=== PATIENT | female | born 1960 | race Caucasian/White ===

== ENCOUNTER 2016-03-25 09:58 | Emergency (ER) | payer OTHER ==
[~2016-03-25] VITALS: Ht 167.6 cm; Wt 113.0 kg
[~2016-03-25 09:58] MED LIST: 1-ME1LIQ PO; CHLO.12%30 SWISH-SPIT; CLIN150 PO; LEVO125T3 PO; MMW SWISH-SPIT
[2016-03-25 10:01] VITALS: BP 139/91; PULSE 70; RESP 16; TEMP 98.1; O2SAT 98
[2016-03-25 10:10] VITALS: PULSE 73; RESP 20; O2SAT 98
[2016-03-25] MEDS ORDERED: AMLO5TAB2 PO (10:10)
[2016-03-25] MEDS ORDERED: LEVO.125 PO (10:10)
[2016-03-25] MEDS ORDERED: ACETAMINOPHEN/HYDROcodone 325 MG/5 MG TAB PO ONE (10:15)
[2016-03-25] MEDS ORDERED: methylPREDNISolone SOD SUCC 125 MG/2 ML VIAL IM ONE (10:15)
[2016-03-25] MEDS ORDERED: KETOROLAC TROMETHAMINE 60 MG/2 ML (IM) VIAL IM ONE (10:15)
[2016-03-25 10:20] VITALS: O2SAT 98
[2016-03-25] MEDS: RESP: ALBUTEROL 2.5 MG/IPRATROPIUM 0.5 MG NEB (SCH) INH ×2 (10:24→10:25)
--- NOTE | 2016-03-25 10:30 | PD ---
HPI Chief Complaint: Respiratory Symptoms Time Seen by Provider: 10:05 Travel History International Travel<30 days: No Contact w/Intl Traveler<30days: No Traveled to known affect area: No History of Present Illness HPI The patient was seen and examined in the presence of the nurse. She complains of shortness of breath. Duration 3 days. Severity is moderate. She has history of asthma and feels like she is having an asthma flare. She's been diffusely wheezing all morning. She ran out of her inhaler. Unfortunately she continues to smoke. She has had a minor dry cough but no fever. She does complain of some left upper back pain. No chest discomfort. Symptoms have no alleviating factors. PFSH Past Medical History Hx Anticoagulant Therapy: No Arthritis: Yes (RHEUMATOID) Asthma: Yes Cardiovascular Problems: No Chemotherapy: No Cerebrovascular Accident: No Diabetes: No Hypertension: Yes Respiratory: Yes (ASTHMA) Thyroid Disease: Yes Influenza Vaccination: Yes ?: Not Menopausal: Yes Past Surgical History Section: Yes Hysterectomy: Yes Other Surgery: Yes (r arm) Social History Alcohol Use: No Tobacco Use: Yes (3ppd) Substance Use: No Allergies-Medications (Allergen,Severity, Reaction): Coded Allergies: No Known Allergies (Unverified , 03/25/16) Reported Meds & Prescriptions Reported Meds & Active Scripts Active Reported Synthroid (Levothyroxine Sodium) 125 Mcg Tab 125 Mcg PO DAILY Amlodipine (Amlodipine Besylate) 5 Mg Tab 5 Mg PO DAILY Review of Systems General / Constitutional: No: Fever Eyes: No: Visual changes HENT: No: Headaches Cardiovascular: No: Chest Pain or Discomfort Respiratory: Positive: Cough, Shortness of Breath, Wheezing Gastrointestinal: No: Abdominal Pain Genitourinary: No: Dysuria Musculoskeletal: No: Pain Skin: No Rash Neurologic: No: Weakness Psychiatric: No: Depression Endocrine: No: Polydipsia Hematologic/Lymphatic: No: Easy Bruising Physical Exam Narrative GENERAL: Well-nourished, well-developed patient in respiratory distress. SKIN: Warm and dry. HEAD: Atraumatic. Normocephalic. EYES: Pupils equal and round. No scleral icterus. No injection or drainage. ENT: No nasal bleeding or discharge. Mucous membranes pink and moist. NECK: Trachea midline. No JVD. CARDIOVASCULAR: Regular rate and rhythm. No murmur appreciated. RESPIRATORY: No accessory muscle use. Diffuse expiratory wheezing. Breath sounds equal bilaterally. GASTROINTESTINAL: Abdomen soft, non-tender, nondistended. Hepatic and splenic margins not palpable. MUSCULOSKELETAL: No obvious deformities. No clubbing. No cyanosis. No edema. NEUROLOGICAL: Awake and alert. No obvious cranial nerve deficits. Motor grossly within normal limits. Normal speech. PSYCHIATRIC: Appropriate mood and affect; insight and judgment normal. Data Data Last Documented VS Vital Signs Date Time Temp Pulse Resp B/P Pulse Ox O2 Delivery O2 Flow Rate FiO2 03/25/16 11:11 97 Room Air 03/25/16 10:10 73 20 03/25/16 10:01 98.1 139/91 Orders Chest, Single Ap (03/25/16 10:12) Ecg Monitoring (03/25/16 10:12) Oximetry (03/25/16 10:12) Methylprednisolone So Succ Inj (Solumedr (03/25/16 10:15) Albuterol-Ipratropium Neb (Duoneb Neb) (03/25/16 10:15) Ketorolac Inj (Toradol Inj) (03/25/16 10:15) Acetamin-Hydrocod 325-5 Mg (Vernal 5-325 (03/25/16 10:15) MDM Medical Decision Making Medical Screen Exam Complete: Yes Emergency Medical Condition: Yes Medical Record Reviewed: Yes Differential Diagnosis Asthma exacerbation, pneumothorax, COPD Narrative Course I have reviewed the patient's electronic medical record. Presentation seems most consistent with acute exacerbation of asthma I gave her injection soluMedrol and 3 nebulizer treatments I reviewed her chest x-ray rule out pneumothorax given her pain and shortness of breath Chest x-ray is normal On recheck she is clinically much improved. Wheezing has resolved. Prednisone prescribed She needs to quit smoking Diagnosis Primary Impression: Asthma without acute exacerbation Additional Instructions: The patient was advised to follow up with their physician and return if they worsen. Quit smoking Med/Other Pt SpecificInfo: Prescription(s) given Scripts Prednisone 20 Mg Tab40 Mg PO DAILY #10 TAB Ref 0 Take 40 mg (2 tablets) daily for 5 days Prov:Jefry Burt MD 03/25/16 Albuterol 18 GM Inh (Ventolin Hfa 18 GM Inh)90 Mcg/Act Aer1 Puff INH Q4H PRN ( SHORTNESS OF BREATH) #1 INHALER Ref 0 Prov:Jefry Burt MD 03/25/16 Disposition: 01 DISCHARGE HOME Condition: Stable Jefry Burt MD Mar 25, 2016 10:30
--- NOTE | 2016-03-25 10:52 | RADHPO ---
EXAM DATE/TIME: 03/25/2016 10:31 [facility] COMPARISON: No previous studies available for comparison. INDICATIONS : Short of breath, chest pains MEDICAL HISTORY : None. SURGICAL HISTORY : None. ENCOUNTER: Initial ACUITY: 3 days PAIN SCORE: 8/10 LOCATION: Bilateral chest FINDINGS: A single view of the chest demonstrates the lungs to be symmetrically aerated without evidence of mas s, infiltrate or effusion. The cardiomediastinal contours are unremarkable. Osseous structures are intact. CONCLUSION: No acute intrathoracic disease. David Garza MD on March 25, 2016 at 10:51 Board Certified Radiologist. This report was verified electronically.
[2016-03-25] MEDS ORDERED: VENTAER INH (11:33)
[2016-03-25] MEDS ORDERED: PRED20 PO (11:33)
[2016-03-25 11:40] VITALS: BP 147/84
--- NOTE | 2016-03-26 09:44 | EKG ---
Date Performed: 03/25/2016 Time Performed: 10:07:06 PTAGE: 55 years EKG: Sinus rhythm Lateral T wave changes are nonspecific Low QRS voltages in precordial leads Borderline ECG Compared to prior tracing no significant change PREVIOUS TRACING : 03/07/2001 17.00 DOCTOR: Remigio Cabezas Interpretating Date/Time 03/26/2016 09:42:44
== END 2016-03-25 11:41 | disposition home or self-care (01) ==
LOC: PHED 09:58
DX: J45.901 Unspecified asthma with (acute) exacerbation (principal); R94.31 Abnormal electrocardiogram [ECG] [EKG]; F17.210 Nicotine dependence, cigarettes, uncomplicated; I10 Essential (primary) hypertension; E07.9 Disorder of thyroid, unspecified
CPT/HCPCS: 71010; 93005; 94640; 94664; 96372; 99284; J1885; J2930

== ENCOUNTER 2016-06-02 07:28 | Emergency (ER) | payer OTHER ==
[~2016-06-02] VITALS: Ht 165.1 cm; Wt 118.2 kg
[~2016-06-02 07:28] MED LIST changes: -1-ME1LIQ PO; +AMLO5TAB2 PO; -CHLO.12%30 SWISH-SPIT; -CLIN150 PO; +LEVO.125 PO; -LEVO125T3 PO; -MMW SWISH-SPIT; +PRED20 PO; +VENTAER INH
[2016-06-02 07:40] VITALS: BP 141/94; PULSE 85; RESP 19; TEMP 98.1; O2SAT 97
[2016-06-02] MEDS ORDERED: DEXAMETHASONE SOD PHOS 20 MG/5 ML VIAL IM ONE (08:45)
[2016-06-02] MEDS ORDERED: KETOROLAC TROMETHAMINE 60 MG/2 ML (IM) VIAL IM ONE (08:45)
[2016-06-02] MEDS ORDERED: oxyCODONE/ACETAMINOPHEN 5 MG/325 MG TAB PO ONE (08:45)
[2016-06-02] MEDS ORDERED: PERC5TAB12 PO (09:06)
[2016-06-02] MEDS ORDERED: CYCL5TAB PO (09:06)
[2016-06-02] MEDS ORDERED: MEDR4PAK PO (09:06)
--- NOTE | 2016-06-02 09:06 | PD ---
HPI Chief Complaint: Back/ Neck Pain or Injury Time Seen by Provider: 08:27 Travel History International Travel<30 days: No Contact w/Intl Traveler<30days: No Traveled to known affect area: No History of Present Illness HPI Patient is a 55-year-old female who presents to emergency room complaints of low back pain. Patient reports that she has history of chronic back pain at baseline as she has 3 herniated discs. Patient reports that 2 days ago, she was on the porch of her trailer home and reports that she slipped and fell down for stairs while outside in the dark. Reports that she landed onto her buttochs. Reports no trauma to head/neck. She was able to get up and ambulate after injury but reports worsening pain to her low back with radiating pain down her legs b/l. Denies incontinence or retention of urine or stool. Denies gait dysfunction. Denies saddle anesthesia. Patient did go to her chiropractor yesterday - reports that no HVLA manipulation was performed. Reports that he just massaged her lower back. Reports pain worse today PFSH Past Medical History Hx Anticoagulant Therapy: No Arthritis: Yes (RHEUMATOID) Asthma: Yes Cardiovascular Problems: No Chemotherapy: No Cerebrovascular Accident: No Diabetes: No Hypertension: Yes Respiratory: Yes (ASTHMA) Thyroid Disease: Yes ?: Not Menopausal: Yes Past Surgical History Section: Yes Hysterectomy: Yes Other Surgery: Yes (r arm) Social History Alcohol Use: No Tobacco Use: Yes (02/14 PPD) Substance Use: No Allergies-Medications (Allergen,Severity, Reaction): Coded Allergies: No Known Allergies (Unverified , 06/02/16) Reported Meds & Prescriptions Reported Meds & Active Scripts Active Medrol Dosepak (Methylprednisolone) 4 Mg Dspk 4 Mg PO DIRECTED Per Pharmacist direction Flexeril (Cyclobenzaprine HCl) 5 Mg Tab 5 Mg PO TID Percocet (Oxycodone-Acetaminophen) 5-325 mg Tab 1 Tab PO Q6H PRN Reported Synthroid (Levothyroxine Sodium) 125 Mcg Tab 125 Mcg PO DAILY Amlodipine (Amlodipine Besylate) 5 Mg Tab 5 Mg PO DAILY Review of Systems General / Constitutional: No: Fever Eyes: No: Visual changes HENT: No: Headaches Cardiovascular: No: Chest Pain or Discomfort Respiratory: No: Shortness of Breath Gastrointestinal: No: Abdominal Pain Genitourinary: No: Dysuria Musculoskeletal: Positive: Pain (low back pain) Skin: No Rash Neurologic: No: Weakness Psychiatric: No: Depression Endocrine: No: Polydipsia Hematologic/Lymphatic: No: Easy Bruising Physical Exam Narrative GENERAL: mild distress SKIN: Focused skin assessment warm/dry. HEAD: Atraumatic. Normocephalic. EYES: Pupils equal and round. No scleral icterus. No injection or drainage. ENT: No nasal bleeding or discharge. Mucous membranes pink and moist. NECK: Trachea midline. No JVD. CARDIOVASCULAR: Regular rate and rhythm. No murmur appreciated. RESPIRATORY: No accessory muscle use. Clear to auscultation. Breath sounds equal bilaterally. GASTROINTESTINAL: Abdomen soft, non-tender, nondistended. Hepatic and splenic margins not palpable. MUSCULOSKELETAL: No obvious deformities. No clubbing. No cyanosis. No edema. Patient with b/l lower paraspinal muscle tenderness, no midline tenderness, no pain with straight leg lifts, no saddle anesthesia NEUROLOGICAL: Awake and alert. No obvious cranial nerve deficits. Motor grossly within normal limits. Normal speech. PSYCHIATRIC: Appropriate mood and affect; insight and judgment normal. Data Data Last Documented VS Vital Signs Date Time Temp Pulse Resp B/P Pulse Ox O2 Delivery O2 Flow Rate FiO2 06/02/16 09:44 68 16 139/73 96 06/02/16 07:40 98.1 Orders Spine, Lumbar - Ltd (Ap & Lat) (06/02/16 ) Dexamethasone Inj (Decadron Inj) (06/02/16 08:45) Ketorolac Inj (Toradol Inj) (06/02/16 08:45) Oxycodone-Acetamin 5-325 Mg (Percocet (06/02/16 08:45) [facility] Medical Decision Making Medical Screen Exam Complete: Yes Emergency Medical Condition: Yes Interpretation(s) Vital Signs Date Time Temp Pulse Resp B/P Pulse Ox O2 Delivery O2 Flow Rate FiO2 06/02/16 07:40 98.1 85 19 141/94 97 Differential Diagnosis Lumbar strain, lumbar fracture, sciatica Narrative Course 55-year-old female who presents to emergency room with acute on chronic low back pain which was exacerbated by falling down 4 stairs 2 days ago. X-ray of the lumbar spine ordered. Dexamethasone IM as well as Toradol IM ordered. Will give patient a percocet as well. X-ray of lumbar spine shows degenerative changes similar to previous x-rays Patient reevaluated, patient reports that she is feeling much better at this time. I did review x-ray reports patient detail. Plan to have patient follow up with her primary care doctor as well as her orthopedist, signs and symptoms of when to return to emergency room was reviewed with patient in detail. Diagnosis Primary Impression: Lumbosacral strain Qualified Code: S39.012A - Lumbosacral strain, initial encounter Additional Impression: Sciatica associated with disorder of lumbar spine Patient Instructions: Narcotic given in the ED, General Instructions Additional Instructions: Return to the emergency room as needed Please stop with a primary care doctor and 2-[address] while taking narcotic pain medications Med/Other Pt SpecificInfo: Prescription(s) given Scripts Methylprednisolone Dosepak (Medrol Dosepak)4 Mg Dspk4 Mg PO DIRECTED #1 DSPK Ref 0 Per Pharmacist direction Prov:Veronica Mays DO 06/02/16 Cyclobenzaprine (Flexeril)5 Mg Tab5 Mg PO TID #10 TAB Ref 0 Prov:Veronica Mays DO 06/02/16 Oxycodone-Acetaminophen (Percocet)5-325 mg Tab1 Tab PO Q6H PRN (PAIN) #10 TAB Ref 0 Prov:Veronica Mays DO 06/02/16 Disposition: 01 DISCHARGE HOME Condition: Stable Veronica Mays DO Jun 02, 2016 09:06
[2016-06-02 09:44] VITALS: BP 139/73; PULSE 68; RESP 16; O2SAT 96
--- NOTE | 2016-06-02 10:17 | RADHPO ---
EXAM DATE/TIME: 06/02/2016 09:07 [facility] COMPARISON: SPINE LUMBAR LTD (AP & LAT), November 23, 2014, 11:29. INDICATIONS : Low back pain from fall MEDICAL HISTORY : None. SURGICAL HISTORY : None. ENCOUNTER: Initial ACUITY: 2 days PAIN SCORE: 10/10 LOCATION: Bilateral low back FINDINGS: The lumbar vertebral bodies are grossly normally aligned in the sagittal plane. There is a minimal d extro curvature of the lumbar spine with the apex at the L2-L3 level. There is disc space narrowing at the L2-L3 and L5-S1 levels. Mild marginal osteophytes are seen at these levels. There is facet h ypertrophy at the L4-L5 and L5-S1 levels. The sacroiliac joints are intact. CONCLUSION: Degenerative change at the lumbar spine as described above. These changes were present on the prior examination and do not appear significantly changed. Hernan Duenas MD on June 02, 2016 at 10:11 Board Certified Radiologist. This report was verified electronically.
== END 2016-06-02 10:30 | disposition home or self-care (01) ==
LOC: PHED 07:28
DX: S39.012A Strain of muscle, fascia and tendon of lower back, initial encounter (principal); M54.30 Sciatica, unspecified side; W10.8XXA Fall (on) (from) other stairs and steps, initial encounter; Y93.9 Activity, unspecified; Y92.89 Other specified places as the place of occurrence of the external cause; Y99.9 Unspecified external cause status
CPT/HCPCS: 72100; 96372; 99283; J1100; J1885

== ENCOUNTER 2016-06-24 07:01 | Observation (INO) | payer OTHER, MEDICAID ==
[2016-06-24] VITALS (9 sets, daily range): BP systolic 125–180; BP diastolic 66–98; PULSE 90–117; RESP 18–24; TEMP 98.4–99.7; O2SAT 94–98
[~2016-06-24] VITALS: Ht 165.1 cm; Wt 117.9 kg
[~2016-06-24 07:01] MED LIST changes: +CYCL5TAB PO; +MEDR4PAK PO; +PERC5TAB12 PO; -PRED20 PO; -VENTAER INH
--- NOTE | 2016-06-24 07:32 | PD ---
HPI Chief Complaint: Altered Mental Status Time Seen by Provider: 07:06 Travel History International Travel<30 days: No Contact w/Intl Traveler<30days: No Traveled to known affect area: No History of Present Illness HPI 55-year-old female brought to the emergency room by EMS after being called by her roommate since she was acting bizarre. The roommate has known her for past 3 months. Says that today she was found sitting in the kitchen at the dining table in her underwear and brought and talking to the microwave. She was not making sense. She had also shoved few towels into the toilet that caused the toilet to be blocked. As per him this is completely not usual of her. When patient arrived she had slurred speech and was not answering questions appropriately. She was disoriented. Vital signs were otherwise stable. When I went to examine her patient was initially sleeping and sliding down the stretcher. When I woke her up she woke up and answered questions appropriately. At that point she was oriented. She was following commands fine. Vital signs are within normal limits. [facility] Past Medical History Narrative Medical List of her past medical, surgical, social and family history is reviewed from the nursing note. Hx Anticoagulant Therapy: No Arthritis: Yes (RHEUMATOID) Asthma: Yes Anxiety: Yes Depression: Yes Cardiovascular Problems: No Chemotherapy: No Cerebrovascular Accident: No Diabetes: No Hypertension: Yes Respiratory: Yes (ASTHMA) Thyroid Disease: Yes Menopausal: Yes Past Surgical History Section: Yes Hysterectomy: Yes Other Surgery: Yes (r arm) Social History Alcohol Use: No Tobacco Use: Yes (02/14 PPD) Substance Use: No Allergies-Medications (Allergen,Severity, Reaction): Coded Allergies: No Known Allergies (Unverified , 06/02/16) Comments No known drug allergies. Reported Meds & Prescriptions Reported Meds & Active Scripts Active Flexeril (Cyclobenzaprine HCl) 5 Mg Tab 5 Mg PO TID Reported Synthroid (Levothyroxine Sodium) 125 Mcg Tab 125 Mcg PO DAILY Amlodipine (Amlodipine Besylate) 5 Mg Tab 5 Mg PO DAILY Narrative Medication List of her home medications reviewed from the nursing note. Review of Systems Except as stated in HPI: all other systems reviewed are Neg Physical Exam Narrative GENERAL: Lethargic, obese, moderate distress SKIN: Focused skin assessment warm/dry. HEAD: Atraumatic. Normocephalic. EYES: Pupils equal and round. No scleral icterus. No injection or drainage. ENT: No nasal bleeding or discharge. Dry lips and mucous membranes NECK: Trachea midline. No JVD. CARDIOVASCULAR: Regular rate and rhythm. No murmur appreciated. RESPIRATORY: Decreased air entry bilaterally, accessory muscles use for respiration GASTROINTESTINAL: Abdomen soft, non-tender, nondistended. Hepatic and splenic margins not palpable. MUSCULOSKELETAL: No obvious deformities. No clubbing. No cyanosis. No edema. NEUROLOGICAL: Lethargic. No obvious cranial nerve deficits. Motor grossly within normal limits. Slurred speech. PSYCHIATRIC: Unable to assess Data Data Last Documented VS Vital Signs Date Time Temp Pulse Resp B/P Pulse Ox O2 Delivery O2 Flow Rate FiO2 06/24/16 08:37 99.0 92 20 125/67 97 Room Air 06/24/16 08:05 21 Orders Electrocardiogram (06/24/16 07:41) Complete Blood Count With Diff (06/24/16 07:41) Comprehensive Metabolic Panel (06/24/16 07:41) Creatine Kinase (Cpk) (06/24/16 07:41) Prothrombin Time / Inr (Pt) (06/24/16 07:41) Troponin I (06/24/16 07:41) Thyroid Stimulating Hormone (06/24/16 07:41) Lactic Acid Sepsis Protocol (06/24/16 07:41) Urinalysis - C+S If Indicated (06/24/16 07:41) Arterial Blood Gas (Abg) (06/24/16 07:41) Blood Culture (06/24/16 07:41) Chest, Single Ap (06/24/16 07:41) Ct Brain W/O Iv Contrast(Rout) (06/24/16 07:41) Blood Glucose (06/24/16 07:41) Ecg Monitoring (06/24/16 07:41) Iv Access Insert/Monitor (06/24/16 07:41) Oximetry (06/24/16 07:41) Sodium Chloride 0.9% Flush (Ns Flush) (06/24/16 07:45) Drug Screen, Random Urine (06/24/16 07:41) Alcohol (Ethanol) (06/24/16 07:41) Salicylates (Aspirin) (06/24/16 07:41) Tylenol (Acetaminophen) (06/24/16 07:41) Methylprednisolone So Succ Inj (Solumedr (06/24/16 08:00) Albuterol-Ipratropium Neb (Duoneb Neb) (06/24/16 08:00) Sodium Chlor 0.9% 1000 Ml Inj (Ns 1000 M (06/24/16 08:30) ^ Straight Catheter (06/24/16 08:28) CKMB (06/24/16 07:45) CKMB% (06/24/16 07:45) Levothyroxine Inj (Synthroid Inj) (06/24/16 09:30) Free T3 (06/24/16 09:18) Free Thyroxine (T4) (06/24/16 09:18) Haloperidol Inj (Haldol Inj) (06/24/16 10:15) Amlodipine (Norvasc) (06/25/16 09:00) Levothyroxine (Synthroid) (06/25/16 06:00) Admit Order (Ed Use Only) (06/24/16 10:53) Labs Laboratory Tests Test 06/24/16 06/24/16 06/24/16 06/24/16 07:45 08:05 08:30 10:45 White Blood Count 11.4 TH/MM3 Red Blood Count 4.51 MIL/MM3 Hemoglobin 12.5 GM/DL Hematocrit 38.5 % Mean Corpuscular Volume 85.3 FL Mean Corpuscular Hemoglobin 27.8 PG Mean Corpuscular Hemoglobin 32.6 % Concent Red Cell Distribution Width 15.0 % Platelet Count 307 TH/MM3 Mean Platelet Volume 7.8 FL Neutrophils (%) (Auto) 84.0 % Lymphocytes (%) (Auto) 9.7 % Monocytes (%) (Auto) 5.0 % Eosinophils (%) (Auto) 0.9 % Basophils (%) (Auto) 0.4 % Neutrophils # (Auto) 9.6 TH/MM3 Lymphocytes # (Auto) 1.1 TH/MM3 Monocytes # (Auto) 0.6 TH/MM3 Eosinophils # (Auto) 0.1 TH/MM3 Basophils # (Auto) 0.0 TH/MM3 CBC Comment DIFF FINAL Differential Comment Prothrombin Time 10.4 SEC Prothromb Time International 0.9 RATIO Ratio Sodium Level 139 MEQ/L Potassium Level 3.9 MEQ/L Chloride Level 102 MEQ/L Carbon Dioxide Level 28.2 MEQ/L Anion Gap 9 MEQ/L Blood Urea Nitrogen 25 MG/DL Creatinine 0.82 MG/DL Estimat Glomerular Filtration 72 ML/MIN Rate Random Glucose 120 MG/DL Lactic Acid Level 0.8 mmol/L Calcium Level 9.5 MG/DL Total Bilirubin 0.4 MG/DL Aspartate Amino Transf 22 U/L (AST/SGOT) Alanine Aminotransferase 44 U/L (ALT/SGPT) Alkaline Phosphatase 56 U/L Total Creatine Kinase 266 U/L 301 U/L Creatine Kinase MB 4.8 NG/ML 5.5 NG/ML Creatine Kinase MB % 1.8 % 1.8 % Troponin I LESS THAN 0.02 LESS THAN 0.02 NG/ML NG/ML Total Protein 7.7 GM/DL Albumin 4.1 GM/DL Free Thyroxine 1.02 NG/DL Free Triiodothyronine (T3) 1.89 PG/ML pg/dL Thyroid Stimulating Hormone 16.000 uIU/ML 3rd Gen Salicylates Level 3.5 MG/DL Acetaminophen Level LESS THAN 2.0 MCG/ML Ethyl Alcohol Level LESS THAN 3 MG/DL Blood Gas Puncture Site RT RADIAL Blood Gas Patient Temperature 98.6 Blood Gas HCO3 26 mmol/L Blood Gas Base Excess 1.8 mmol/L Blood Gas Oxygen Saturation 93 % Arterial Blood pH 7.42 Arterial Blood Partial 40 mmHg Pressure CO2 Arterial Blood Partial 75 mmHG Pressure O2 Arterial Blood Oxygen Content 16.1 Vol % Arterial Blood 1.5 % Carboxyhemoglobin Arterial Blood Methemoglobin 0.8 % Blood Gas Hemoglobin 12.4 G/DL Oxygen Delivery Device ROOM AIR Blood Gas Inspired Oxygen 21 % Urine Color YELLOW Urine Turbidity CLEAR Urine pH 6.0 Urine Specific [place] 1.020 Urine Protein NEG mg/dL Urine Glucose (UA) NEG mg/dL Urine Ketones NEG mg/dL Urine Occult Blood TRACE Urine Nitrite NEG Urine Bilirubin NEG Urine Urobilinogen LESS THAN 2.0 MG/DL Urine Leukocyte Esterase NEG Urine RBC 8 /hpf Urine WBC 2 /hpf Urine Squamous Epithelial 1 /hpf Cells Urine Mucus FEW /lpf Microscopic Urinalysis Comment CATH-CULT NOT IND Urine Opiates Screen NEG Urine Barbiturates Screen NEG Urine Amphetamines Screen NEG Urine Benzodiazepines Screen POS Urine Cocaine Screen NEG Urine Cannabinoids Screen POS MDM Medical Decision Making Medical Screen Exam Complete: Yes Emergency Medical Condition: Yes Medical Record Reviewed: Yes Interpretation(s) Twelve-lead EKG was reviewed by me. Normal sinus rhythm, left axis deviation, nonspecific ST-T wave changes. Heart rate of 88 bpm. Differential Diagnosis Sepsis, COPD exacerbation with CO2 retention, metabolic encephalopathy, UTI, pneumonia Narrative Course 10:29 AM all the blood test results are back. Patient had significantly elevated TSH and rest the test results are within normal limit. 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 I've ordered high-dose IV Synthroid. Awaiting for the hospitalist to call back. Meanwhile patient has been delirious and wandering out of her room. I have ordered 5 mg of IM Haldol. Critical Care Narrative Aggregate critical care time was 45 minutes. Time to perform other separately billable procedures was not included in the critical care time. My time did not include minutes spent treating any other patients simultaneously or on activities that did not directly contribute to the patient's treatment. The services I provided to this patient were to treat and/or prevent clinically significant deterioration that could result in: Altered mental status, myxedema coma I provided critical care services requiring my management, as noted below: Chart data review, documentation time, medication orders and management, vital sign assessments/reviewing monitor data, ordering and reviewing lab tests, ordering and interpreting/reviewing x-rays and diagnostic studies, care of the patient and discussion of the patient with the admitting physicians. Procedures EKG Prior to Arrival: No Diagnosis Primary Impression: Altered mental status Qualified Code: R41.0 - Delirium Additional Impression: Myxedema coma Admitting Information Admitting Physician Requests: Admit Christ Keen MD June 24, 2016 07:32
[2016-06-24] MEDS ORDERED: SODIUM CHLORIDE 0.9% FLUSH 10 ML FLUSH IVF PRN (07:45)
[2016-06-24] MEDS ORDERED: methylPREDNISolone SOD SUCC 125 MG/2 ML VIAL IVP ONE (08:00)
--- NOTE | 2016-06-24 08:01 | RADRPT ---
EXAM DATE/TIME: 06/24/2016 07:54 [facility] COMPARISON: CHEST SINGLE AP, March 25, 2016, 10:31. INDICATIONS : Syncope, Shortness of breath. MEDICAL HISTORY : None. SURGICAL HISTORY : None. ENCOUNTER: Initial ACUITY: 1 day PAIN SCORE: 0/10 LOCATION: Bilateral chest FINDINGS: A single view of the chest demonstrates diminished lung volumes without evidence of mass, infiltrate or effusion. The cardiomediastinal contours are unremarkable. Osseous structures are intact. CONCLUSION: No acute disease. Abdoulaye Fontaine MD on June 24, 2016 at 7:59 Board Certified Radiologist. This report was verified electronically.
[2016-06-24] MEDS: RESP: ALBUTEROL 2.5 MG/IPRATROPIUM 0.5 MG NEB (SCH) INH ×2 (08:02→08:03)
[2016-06-24 08:08] LABS: AUTOMATED NEUTROPHIL # 9.6 TH/MM3 (1.8-7.7); BASOPHIL % 0.4 % (0.0-2.0); EOSINOPHIL # 0.1 TH/MM3 (0-0.4); EOSINOPHIL % 0.9 % (0.0-4.0); HEMATOCRIT 38.5 % (35.0-46.0); HEMO FLAGS DIFF FINAL; LYMPH % 9.7 % (9.0-44.0); LYMPHOCYTE # 1.1 TH/MM3 (1.0-4.8); MEAN CELL VOLUME 85.3 FL (80.0-100.0); MEAN CORPUSCULAR HEMOGLOBIN 27.8 PG (27.0-34.0); MEAN CORPUSCULAR HGB CONC 32.6 % (32.0-36.0); PLATELET COUNT 307 TH/MM3 (150-450); RED BLOOD COUNT 4.51 MIL/MM3 (4.00-5.30); WHITE BLOOD COUNT 11.4 TH/MM3 (4.0-11.0)
--- NOTE | 2016-06-24 08:12 | RADRPT ---
EXAM DATE/TIME: 06/24/2016 07:57 [facility] COMPARISON: No previous studies available for comparison. INDICATIONS : Sudden onset of Confusion. RADIATION DOSE: 43.70 CTDIvol (mGy) MEDICAL HISTORY : Hypertension. SURGICAL HISTORY : Hysterectomy. ENCOUNTER: Initial ACUITY: 1 day PAIN SCALE: 0/10 LOCATION: cranial confusion TECHNIQUE: Multiple contiguous axial images were obtained of the head. Using automated exposure control and adj ustment of the mA and/or kV according to patient size, radiation dose was kept as low as reasonably a chievable to obtain optimal diagnostic quality images. FINDINGS: CEREBRUM: The ventricles are normal for age. No evidence of midline shift, mass lesion, hemorrhage or acute in farction. No extra-axial fluid collections are seen. POSTERIOR FOSSA: The cerebellum and brainstem are intact. The 4th ventricle is midline. The cerebellopontine angle i s unremarkable. EXTRACRANIAL: The visualized portion of the orbits is intact. SKULL: The calvaria is intact. No evidence of skull fracture. CONCLUSION: Normal examination. Abdoulaye Fontaine MD on June 24, 2016 at 8:09 Board Certified Radiologist. This report was verified electronically.
[2016-06-24 08:15] LABS: BLOOD GAS BASE EXCESS 1.8 mmol/L (-2-2); BLOOD GAS CARBOXYHEMOGLOBIN 1.5 % (0-4); BLOOD GAS HCO3 26 mmol/L (22-26); BLOOD GAS METHEMOGLOBIN 0.8 % (0-2); BLOOD GAS O2 HGB SATURATION 93 % (90-100); BLOOD GAS OXYGEN CONTENT 16.1 Vol % (12.0-20.0); BLOOD GAS PCO2 40 mmHg (38-42); BLOOD GAS PO2 75 mmHG (61-120); BLOOD GAS TOTAL HGB 12.4 G/DL (12.0-16.0); CRITICAL VALUE NO; DRAW SITE RT RADIAL; FIO2 21 %; NUMBER OF ARTERIAL PUNCTURES 2; OXYGEN DEVICE ROOM AIR; STAT YES; TEMP CORR TO 98.6; ULNAR PULSE PRESENT
[2016-06-24 08:18] LABS: INTERNATIONAL NORMALIZED RATIO 0.9 RATIO; PROTHROMBIN TIME - PATIENT 10.4 SEC (9.8-11.6)
[2016-06-24 08:24] LABS: ANION GAP 9 MEQ/L (5-15); AST (GOT) 22 U/L (15-37); BICARBONATE 28.2 MEQ/L (21.0-32.0); BLOOD UREA NITROGEN 25 MG/DL (7-18); CHLORIDE 102 MEQ/L (98-107); GLOMERULAR FILTRATION RATE 72 ML/MIN (>89); POTASSIUM 3.9 MEQ/L (3.5-5.1); SODIUM (NA) 139 MEQ/L (136-145)
[2016-06-24] MEDS ORDERED: SODIUM CHLOR 0.9% 1000 ML INJ 1,000 ML IV ONE (08:30)
[2016-06-24 08:35] LABS: ACETAMINOPHEN LESS THAN 2.0 MCG/ML (10.0-30.0); ALKALINE PHOSPHATASE 56 U/L (45-117); ALT (GPT) 44 U/L (10-53); CREATINE KINASE 266 U/L (26-192); TOTAL BILIRUBIN ADULT 0.4 MG/DL (0.2-1.0)
[2016-06-24 08:49] LABS: CKMB 4.8 NG/ML (0.5-3.6)
[2016-06-24 08:49] LABS: BLOOD, URINE TRACE (NEG); COMMENT (UR) CATH-CULT NOT IND; CULTURE IF INDICATED CATH CULTURE NOT IND; GLUCOSE,URINE NEG (NEG); KETONE, URINE NEG (NEG); MUCUS URINE FEW /lpf (OCC); NITRITE,URINE NEG (NEG); SQUAMOUS EPITHELIAL CELL URINE 1 /hpf (0-5); URINE COLOR YELLOW (YELLW/STRAW)
[2016-06-24] MEDS ORDERED: LEVOTHYROXINE SODIUM 100 MCG VIAL IV PUSH ONE (09:30)
[2016-06-24] MEDS ORDERED: HALOPERIDOL LACTATE 5 MG/ML AMP IM ONE (10:15)
[2016-06-24] MEDS ORDERED: ACETAMINOPHEN 325 MG TAB PO PRN (11:00)
[2016-06-24] MEDS ORDERED: BISACODYL 10 MG SUPP RECTAL PRN (11:00)
[2016-06-24] MEDS: DOCUSATE SODIUM 100 MG CAP PO SCH ×2 (11:00→23:17)
[2016-06-24] MEDS ORDERED: NALOXONE HCL 0.4 MG/ML AMP IV PRN (11:00)
[2016-06-24] MEDS ORDERED: SODIUM CHLORIDE 0.9% FLUSH 10 ML FLUSH IV FLUSH PRN (11:00)
[2016-06-24] MEDS ORDERED: ONDANSETRON HCL 4 MG/2 ML VIAL IVP PRN (11:00)
[2016-06-24 11:18] LABS: AMPHETAMINE, URINE NEG (NEG); BARBITURATES, URINE NEG (NEG); COCAINE, URINE NEG (NEG)
[2016-06-24 11:32] LABS: FREE T3 1.89 PG/ML (2.18-3.98); FREE T4 1.02 NG/DL (0.76-1.46)
[2016-06-24 11:50] LABS: CREATINE KINASE 301 U/L (26-192)
--- NOTE | 2016-06-24 12:02 | HHI.HP ---
[facility] Primary Care Physician Non-Staff Admission Diagnosis altered mental status, myxedema coma Diagnoses: Chief Complaint: Altered Mental Status Travel History International Travel<30 Days: No Contact w/Intl Traveler <30 Da: No Traveled to Known Affected Are: No History of Present Illness 55-year-old female brought to the emergency room by EMS after being called by her roommate since she was acting bizarre. The roommate has known her for past 3 months. Says that today she was found sitting in the kitchen at the dining table in her underwear and brought and talking to the microwave. She was not making sense. She had also shelved few towels into the toilet that caused the toilet to be blocked. As per him this is completely not usual of her. When patient arrived she had slurred speech and was not answering questions appropriately. She was disoriented. Vital signs were otherwise stable. When I went to examine her patient was initially sleeping and sliding down the stretcher. When I woke her up she woke up and answered questions appropriately. At that point she was oriented. She was following commands fine. Vital signs are within normal limits. Seen in her bedroom in ER in the presence of ER nurse. Past Family Social History Past Medical History OA Asthma Anxiety disorder Hypertension Hypothyroidism Past Surgical History C [place] Right arm surgery Reported Medications Reported Meds & Active Scripts Active Flexeril (Cyclobenzaprine HCl) 5 Mg Tab 5 Mg PO TID Reported Synthroid (Levothyroxine Sodium) 125 Mcg Tab 125 Mcg PO DAILY Amlodipine (Amlodipine Besylate) 5 Mg Tab 5 Mg PO DAILY Allergies: Coded Allergies: No Known Allergies (Unverified , 06/02/16) Active Ordered Medications Current Medications Medications (Trade) Dose Ordered Sig/Nathan Route Start Time Stop Time Status Last Admin (Norvasc) 5 mg DAILY PO 06/25/16 09:00 Levothyroxine Sodium 125 mcg 125 mcg DAILY@06 PO 06/25/16 06:00 (NS 1000 ml Inj) 1,000 ml @ 100 mls/hr Q10H IV 06/24/16 10:52 (NS Flush) 2 ml UNSCH PRN IV FLUSH 06/24/16 11:00 (NS Flush) 2 ml BID IV FLUSH 06/24/16 21:00 (Tylenol) 650 mg Q4H PRN PO 06/24/16 11:00 (Zofran Inj) 4 mg Q6H PRN IVP 06/24/16 11:00 (Dulcolax Supp) 10 mg DAILY PRN RECTAL 06/24/16 11:00 (Colace) 100 mg Q12HR PO 06/24/16 11:00 (Lovenox Inj) 40 mg Q24H SQ 06/24/16 12:00 (Narcan Inj) 0.4 mg UNSCH PRN IV 06/24/16 11:00 Family History asked and denied by patient. Social History Lives with a roommate Tobacco dependence Physical Exam Vital Signs Vital Signs Date Time Temp Pulse Resp B/P Pulse Ox O2 Delivery O2 Flow Rate FiO2 06/24/16 11:44 112 22 144/98 98 06/24/16 08:37 99.0 92 20 125/67 97 Room Air 06/24/16 08:05 94 21 06/24/16 07:49 98 06/24/16 07:11 98 Room Air 06/24/16 07:07 98.8 90 18 171/84 98 Physical Exam GENERAL: Obesity alert and oriented in place and person and time, but agitated restless. SKIN: warm/dry. HEAD: Atraumatic. Normocephalic. EYES: Pupils equal and round. No scleral icterus. No injection or drainage. ENT: No nasal bleeding or discharge. Dry lips and mucous membranes NECK: Trachea midline. No JVD. CARDIOVASCULAR: Regular rate and rhythm. No murmur appreciated. RESPIRATORY: Clear to auscultation bilateral no wheezing or crackles. GASTROINTESTINAL: Abdomen soft, non-tender, nondistended. Hepatic and splenic margins not palpable. MUSCULOSKELETAL: No obvious deformities. No clubbing. No cyanosis. No edema. NEUROLOGICAL: Alert and oriented. No obvious cranial nerve deficits. Motor grossly within normal limits. Slurred speech. PSYCHIATRIC: Mood okay Laboratory Laboratory Tests Test 06/24/16 06/24/16 06/24/16 06/24/16 07:45 08:05 08:30 10:45 White Blood Count 11.4 Red Blood Count 4.51 Hemoglobin 12.5 Hematocrit 38.5 Mean Corpuscular Volume 85.3 Mean Corpuscular Hemoglobin 27.8 Mean Corpuscular Hemoglobin 32.6 Concent Red Cell Distribution Width 15.0 Platelet Count 307 Mean Platelet Volume 7.8 Neutrophils (%) (Auto) 84.0 Lymphocytes (%) (Auto) 9.7 Monocytes (%) (Auto) 5.0 Eosinophils (%) (Auto) 0.9 Basophils (%) (Auto) 0.4 Neutrophils # (Auto) 9.6 Lymphocytes # (Auto) 1.1 Monocytes # (Auto) 0.6 Eosinophils # (Auto) 0.1 Basophils # (Auto) 0.0 CBC Comment DIFF FINAL Differential Comment Prothrombin Time 10.4 Prothromb Time International 0.9 Ratio Sodium Level 139 Potassium Level 3.9 Chloride Level 102 Carbon Dioxide Level 28.2 Anion Gap 9 Blood Urea Nitrogen 25 Creatinine 0.82 Estimat Glomerular Filtration 72 Rate Random Glucose 120 Lactic Acid Level 0.8 Calcium Level 9.5 Total Bilirubin 0.4 Aspartate Amino Transf 22 (AST/SGOT) Alanine Aminotransferase 44 (ALT/SGPT) Alkaline Phosphatase 56 Total Creatine Kinase 266 301 Creatine Kinase MB 4.8 Creatine Kinase MB % 1.8 Troponin I LESS THAN 0.02 LESS THAN 0.02 Total Protein 7.7 Albumin 4.1 Free Thyroxine 1.02 Free Triiodothyronine (T3) 1.89 pg/dL Thyroid Stimulating Hormone 16.000 3rd Gen Salicylates Level 3.5 Acetaminophen Level LESS THAN 2.0 Ethyl Alcohol Level LESS THAN 3 Blood Gas Puncture Site RT RADIAL Blood Gas Patient Temperature 98.6 Blood Gas HCO3 26 Blood Gas Base Excess 1.8 Blood Gas Oxygen Saturation 93 Arterial Blood pH 7.42 Arterial Blood Partial 40 Pressure CO2 Arterial Blood Partial 75 Pressure O2 Arterial Blood Oxygen Content 16.1 Arterial Blood 1.5 Carboxyhemoglobin Arterial Blood Methemoglobin 0.8 Blood Gas Hemoglobin 12.4 Oxygen Delivery Device ROOM AIR Blood Gas Inspired Oxygen 21 Urine Color YELLOW Urine Turbidity CLEAR Urine pH 6.0 Urine Specific [place] 1.020 Urine Protein NEG Urine Glucose (UA) NEG Urine Ketones NEG Urine Occult Blood TRACE Urine Nitrite NEG Urine Bilirubin NEG Urine Urobilinogen LESS THAN 2.0 Urine Leukocyte Esterase NEG Urine RBC 8 Urine WBC 2 Urine Squamous Epithelial 1 Cells Urine Mucus FEW Microscopic Urinalysis Comment CATH-CULT NOT IND Urine Opiates Screen NEG Urine Barbiturates Screen NEG Urine Amphetamines Screen NEG Urine Benzodiazepines Screen POS Urine Cocaine Screen NEG Urine Cannabinoids Screen POS Date/Time Procedure Status Source Growth 06/24/16 07:55 Aerobic Blood Culture Received Blood Peripheral Pending 06/24/16 07:55 Anaerobic Blood Culture Received Blood Peripheral Pending Result Diagram: 06/24/1645 06/24/16744 Imaging Last Impressions Head CT 06/24/16740 Signed Impressions: Service Date/Time: Friday, June 24, 2016 07:57 - CONCLUSION: Normal examination. Abdoulaye Fontaine MD Chest X-Ray 06/24/16740 Signed Impressions: Service Date/Time: Friday, June 24, 2016 07:54 - CONCLUSION: No acute disease. Abdoulaye Fontaine MD Assessment and Plan Assessment and Plan 1. Acute Toxic Metabolic Encephalopathy/Delirium/Psychosis given Haldol and consulted Psychiatry specialist, she has psychiatric history. 2. Questionable Myxedema coma by ER specialist she has Hypothyroidism given 300 mg of levothyroxine. will continue home dose 125 mcg daily 3. Hypertension continue home medicines 4. obesity strongly recommended diet and exercise. Discussed with ER specialist Doctor Christ Keen DVT prophylaxis SCDs Code Status Full code. Discussed Condition With patient, ER physician and nurse. Micky Anderson MD June 24, 2016 12:01
[2016-06-24 12:03] LABS: CKMB 5.5 NG/ML (0.5-3.6)
[2016-06-24] MEDS: ENOXAPARIN SODIUM 40 MG/0.4 ML SYRINGE SQ SCH (13:54)
[2016-06-24] MEDS: SODIUM CHLOR 0.9% 1000 ML INJ 1,000 ML IV SCH ×2 (14:01→20:52)
[2016-06-24] MEDS: HALOPERIDOL LACTATE 5 MG/ML AMP IV PRN ×2 (14:49→23:17)
--- NOTE | 2016-06-24 15:16 | EKG ---
Date Performed: 06/24/2016 Time Performed: 07:17:58 PTAGE: 55 years EKG: Sinus rhythm LOW QRS VOLTAGE IN PRECORDIAL LEADS NONSPECIFIC T-WAVE ABNORMALITY Since previous tracing, no signif icant change noted BORDERLINE ECG PREVIOUS TRACING : 03/25/2016 10.07 DOCTOR: Vilma Butler Interpretating Date/Time 06/24/2016 15:15:07
[2016-06-24 17:02] LABS: CREATINE KINASE 566 U/L (26-192)
[2016-06-24 17:14] LABS: CKMB 8.5 NG/ML (0.5-3.6)
[2016-06-24] MEDS: SODIUM CHLORIDE 0.9% FLUSH 10 ML FLUSH IV FLUSH SCH (23:18)
[2016-06-25] VITALS (8 sets, daily range): BP systolic 137–187; BP diastolic 71–98; PULSE 66–92; RESP 18–24; TEMP 97.1–99.7; O2SAT 93–99
[2016-06-25] MEDS ORDERED: RESP: ALBUTEROL 2.5 MG/IPRATROPIUM 0.5 MG NEB (PRN) NEB (00:45)
[2016-06-25] MEDS ORDERED: ENALAPRILAT 1.25 MG/ML VIAL IV PUSH PRN (01:00)
[2016-06-25] MEDS: LEVOTHYROXINE SODIUM 125 MCG TAB PO SCH (05:51)
[2016-06-25 06:52] LABS: AUTOMATED NEUTROPHIL # 7.9 TH/MM3 (1.8-7.7); BASOPHIL % 0.4 % (0.0-2.0); EOSINOPHIL % 0.5 % (0.0-4.0); HEMATOCRIT 34.9 % (35.0-46.0); HEMO FLAGS DIFF FINAL; LYMPHOCYTE # 1.3 TH/MM3 (1.0-4.8); MEAN CELL VOLUME 85.4 FL (80.0-100.0); MEAN CORPUSCULAR HEMOGLOBIN 27.9 PG (27.0-34.0); MEAN CORPUSCULAR HGB CONC 32.7 % (32.0-36.0); MONO % 8.5 % (0.0-8.0); NEUT % 77.6 % (16.0-70.0); PLATELET COUNT 261 TH/MM3 (150-450); RED BLOOD COUNT 4.09 MIL/MM3 (4.00-5.30); WHITE BLOOD COUNT 10.2 TH/MM3 (4.0-11.0)
[2016-06-25] MEDS: SODIUM CHLOR 0.9% 1000 ML INJ 1,000 ML IV SCH ×2 (06:52→16:52)
[2016-06-25 07:26] LABS: ALT (GPT) 46 U/L (10-53); ANION GAP 6 MEQ/L (5-15); AST (GOT) 59 U/L (15-37); BICARBONATE 28.2 MEQ/L (21.0-32.0); BLOOD UREA NITROGEN 19 MG/DL (7-18); CHLORIDE 108 MEQ/L (98-107); GLOMERULAR FILTRATION RATE 131 ML/MIN (>89); POTASSIUM 3.2 MEQ/L (3.5-5.1); SODIUM (NA) 142 MEQ/L (136-145)
[2016-06-25 07:28] LABS: ALKALINE PHOSPHATASE 51 U/L (45-117); TOTAL BILIRUBIN ADULT 0.7 MG/DL (0.2-1.0)
[2016-06-25] MEDS: SODIUM CHLORIDE 0.9% FLUSH 10 ML FLUSH IV FLUSH SCH ×2 (08:21→21:00)
[2016-06-25] MEDS: DOCUSATE SODIUM 100 MG CAP PO SCH ×2 (08:21→21:00)
[2016-06-25] MEDS ORDERED: amLODIPine BESYLATE 5 MG TAB PO ONE (08:45)
--- NOTE | 2016-06-25 08:46 | HHI.PR ---
Subjective Remarks 55-year-old female brought to the emergency room by EMS after being called by her roommate since she was acting bizarre. The roommate has known her for past 3 months. Says that today she was found sitting in the kitchen at the dining table in her underwear and brought and talking to the microwave. She was not making sense. She had also shelved few towels into the toilet that caused the toilet to be blocked. As per him this is completely not usual of her. When patient arrived she had slurred speech and was not answering questions appropriately. She was disoriented. Vital signs were otherwise stable. When I went to examine her patient was initially sleeping and sliding down the stretcher. When I woke her up she woke up and answered questions appropriately. At that point she was oriented. She was following commands fine. Vital signs are within normal limits. 06/25: Seen in her bedroom in the presence of nurse and Sitter, stable alert and oriented x3, discussed with psychiatry specialist, he thinks more related to Benzodiazepine withdrawal, she is stable giving her Benzo at this time and may be able to remove restraints in the next 24 hours, developed hypertension but the patient is been agitated on restraints. continue present management, No nausea, vomit or diarrhea. Objective Vital Signs Date Time Temp Pulse Resp B/P Pulse Ox O2 Delivery O2 Flow Rate FiO2 06/25/16 08:28 97.8 83 24 151/84 98 06/25/16 04:00 98.5 92 22 174/88 95 06/25/16 01:04 93 21 06/25/16 00:00 99.7 66 18 187/89 93 06/24/16 20:00 99.7 96 24 141/66 94 06/24/16 20:00 111 06/24/16 17:41 115 06/24/16 16:22 98.4 117 24 180/88 97 06/24/16 16:08 96 21 06/24/16 11:44 112 22 144/98 98 I/O 06/24/16 06/24/16 06/24/16 06/25/16 06/25/16 06/25/16 07:00 15:00 23:00 07:00 15:00 23:00 Output Total 650 ml 400 ml Balance -650 ml -400 ml Output Urine Total 650 ml 400 ml Result Diagram: 06/25/1630 06/25/16629 Imaging Last Impressions Head CT 06/24/16740 Signed Impressions: Service Date/Time: Friday, June 24, 2016 07:57 - CONCLUSION: Normal examination. Abdoulaye Fontaine MD Chest X-Ray 06/24/16740 Signed Impressions: Service Date/Time: Friday, June 24, 2016 07:54 - CONCLUSION: No acute disease. Abdoulaye Fontaine MD Procedures No procedures performed Other Results Laboratory Tests Test 06/24/16 06/24/16 06/24/16 06/24/16 07:45 08:05 08:30 16:10 Prothrombin Time 10.4 SEC Prothromb Time International 0.9 RATIO Ratio Lactic Acid Level 0.8 mmol/L Free Thyroxine 1.02 NG/DL Free Triiodothyronine (T3) 1.89 PG/ML pg/dL Thyroid Stimulating Hormone 16.000 uIU/ML 3rd Gen Salicylates Level 3.5 MG/DL Acetaminophen Level LESS THAN 2.0 MCG/ML Ethyl Alcohol Level LESS THAN 3 MG/DL Blood Gas Puncture Site RT RADIAL Blood Gas Patient Temperature 98.6 Blood Gas HCO3 26 mmol/L Blood Gas Base Excess 1.8 mmol/L Blood Gas Oxygen Saturation 93 % Arterial Blood pH 7.42 Arterial Blood Partial 40 mmHg Pressure CO2 Arterial Blood Partial 75 mmHG Pressure O2 Arterial Blood Oxygen Content 16.1 Vol % Arterial Blood 1.5 % Carboxyhemoglobin Arterial Blood Methemoglobin 0.8 % Blood Gas Hemoglobin 12.4 G/DL Oxygen Delivery Device ROOM AIR Blood Gas Inspired Oxygen 21 % Urine Color YELLOW Urine Turbidity CLEAR Urine pH 6.0 Urine Specific [place] 1.020 Urine Protein NEG mg/dL Urine Glucose (UA) NEG mg/dL Urine Ketones NEG mg/dL Urine Occult Blood TRACE Urine Nitrite NEG Urine Bilirubin NEG Urine Urobilinogen LESS THAN 2.0 MG/DL Urine Leukocyte Esterase NEG Urine RBC 8 /hpf Urine WBC 2 /hpf Urine Squamous Epithelial 1 /hpf Cells Urine Mucus FEW /lpf Microscopic Urinalysis Comment CATH-CULT NOT IND Urine Opiates Screen NEG Urine Barbiturates Screen NEG Urine Amphetamines Screen NEG Urine Benzodiazepines Screen POS Urine Cocaine Screen NEG Urine Cannabinoids Screen POS Total Creatine Kinase 566 U/L Creatine Kinase MB 8.5 NG/ML Creatine Kinase MB % 1.5 % Troponin I LESS THAN 0.02 NG/ML Test 06/25/16 06:30 White Blood Count 10.2 TH/MM3 Red Blood Count 4.09 MIL/MM3 Hemoglobin 11.4 GM/DL Hematocrit 34.9 % Mean Corpuscular Volume 85.4 FL Mean Corpuscular Hemoglobin 27.9 PG Mean Corpuscular Hemoglobin 32.7 % Concent Red Cell Distribution Width 15.0 % Platelet Count 261 TH/MM3 Mean Platelet Volume 7.1 FL Neutrophils (%) (Auto) 77.6 % Lymphocytes (%) (Auto) 13.0 % Monocytes (%) (Auto) 8.5 % Eosinophils (%) (Auto) 0.5 % Basophils (%) (Auto) 0.4 % Neutrophils # (Auto) 7.9 TH/MM3 Lymphocytes # (Auto) 1.3 TH/MM3 Monocytes # (Auto) 0.9 TH/MM3 Eosinophils # (Auto) 0.0 TH/MM3 Basophils # (Auto) 0.0 TH/MM3 CBC Comment DIFF FINAL Differential Comment Sodium Level 142 MEQ/L Potassium Level 3.2 MEQ/L Chloride Level 108 MEQ/L Carbon Dioxide Level 28.2 MEQ/L Anion Gap 6 MEQ/L Blood Urea Nitrogen 19 MG/DL Creatinine 0.49 MG/DL Estimat Glomerular Filtration 131 ML/MIN Rate Random Glucose 107 MG/DL Calcium Level 8.7 MG/DL Total Bilirubin 0.7 MG/DL Aspartate Amino Transf 59 U/L (AST/SGOT) Alanine Aminotransferase 46 U/L (ALT/SGPT) Alkaline Phosphatase 51 U/L Total Protein 6.4 GM/DL Albumin 3.5 GM/DL Objective Remarks GENERAL: Obesity alert and oriented x 3. SKIN: warm/dry. HEAD: Atraumatic. Normocephalic. EYES: Pupils equal and round. No scleral icterus. No injection or drainage. ENT: No nasal bleeding or discharge. Dry lips and mucous membranes NECK: Trachea midline. No JVD. CARDIOVASCULAR: Regular rate and rhythm. No murmur appreciated. RESPIRATORY: Clear to auscultation bilateral no wheezing or crackles. GASTROINTESTINAL: Abdomen soft, non-tender, nondistended. Hepatic and splenic margins not palpable. MUSCULOSKELETAL: No obvious deformities. No clubbing. No cyanosis. No edema. NEUROLOGICAL: Alert and oriented. No focal deficits. PSYCHIATRIC: Mood okay Medications and IVs Current Medications Medications (Trade) Dose Ordered Sig/Nathan Route Start Time Stop Time Status Last Admin Levothyroxine Sodium 125 mcg 125 mcg DAILY@06 PO 06/25/16 06:00 06/25/16 05:51 (NS 1000 ml Inj) 1,000 ml @ 100 mls/hr Q10H IV 06/24/16 10:52 06/24/16 20:52 (NS Flush) 2 ml UNSCH PRN IV FLUSH 06/24/16 11:00 (NS Flush) 2 ml BID IV FLUSH 06/24/16 21:00 06/25/16 08:21 (Tylenol) 650 mg Q4H PRN PO 06/24/16 11:00 (Zofran Inj) 4 mg Q6H PRN IVP 06/24/16 11:00 (Dulcolax Supp) 10 mg DAILY PRN RECTAL 06/24/16 11:00 (Colace) 100 mg Q12HR PO 06/24/16 11:00 06/24/16 23:17 (Lovenox Inj) 40 mg Q24H SQ 06/24/16 12:00 06/25/16 12:49 (Narcan Inj) 0.4 mg UNSCH PRN IV 06/24/16 11:00 (Haldol Inj) 2 mg Q8H PRN IV 06/24/16 14:30 06/24/16 23:17 (Vasotec Inj) 1.25 mg Q6H PRN IV PUSH 06/25/16 01:00 06/25/16 01:15 (Norvasc) 10 mg DAILY PO 06/26/16 09:00 (Romazicon Inj) 0.2 mg Q1M PRN IV PUSH 06/25/16 13:15 (Ativan) 1 mg Q4H PRN PO 06/25/16 13:15 (Ativan Inj) 1 mg Q4H PRN IV PUSH 06/25/16 13:15 (Ativan) 2 mg Q2H PRN PO 06/25/16 13:15 (Ativan Inj) 2 mg Q2H PRN IV PUSH 06/25/16 13:15 (Ativan Inj) 2 mg Q1H PRN IV PUSH 06/25/16 13:15 Lorazepam 2 mg 2 mg Q15M PRN IV PUSH 06/25/16 13:15 Multivitamins 10 ml/Folic Acid 1 mg/Sodium Chloride 510.2 ml @ 125 mls/hr Q24H IV 06/25/16 17:00 06/30/16 16:59 (Thiamine Inj/NS Inj) 101 ml @ 100 mls/hr Q24H IV 06/25/16 17:00 06/28/16 16:59 06/25/16 16:57 A/P Assessment and Plan 1. Acute Toxic Metabolic Encephalopathy/Delirium/Psychosis given Haldol and consulted Psychiatry specialist and discussed with him, consider benzodiazepine withdrawal, alcohol withdrawal, continue present care started CIWA protocol. 2. Questionable Myxedema coma by ER specialist she has Hypothyroidism given 300 mg of levothyroxine. will continue home dose 125 mcg daily 3. Hypertension continue home medicines 4. obesity strongly recommended diet and exercise. As Always a pleasure to talk about cases receive input and recommendations by Psychiatry Specialist Doctor Erik Thomas. Highly Appreciated. DVT prophylaxis SCDs Code Status Full code. Discharge Planning Expected in the next one to two days. Micky Anderson MD June 25, 2016 08:46
[2016-06-25] MEDS ORDERED: amLODIPine BESYLATE 5 MG TAB PO SCH (09:00)
[2016-06-25] MEDS: ENOXAPARIN SODIUM 40 MG/0.4 ML SYRINGE SQ SCH (12:49)
[2016-06-25] MEDS ORDERED: LORazepam 1 MG TAB PO PRN (13:15)
[2016-06-25] MEDS ORDERED: LORazepam 2 MG TAB PO PRN (13:15)
[2016-06-25] MEDS ORDERED: FLUMAZENIL 0.5 MG/5 ML VIAL IV PUSH PRN (13:15)
[2016-06-25] MEDS ORDERED: LORazepam 2 MG/ML VIAL IV PUSH PRN ×4 (13:15)
--- NOTE | 2016-06-25 13:28 | PD.CONS ---
Provisional Diagnosis Admission Date June 24, 2016 at 10:55 [place] I. Delirium due to underlying medical conditions, history of anxiety [place] II. Deferred [place] III. Asthma, HTN, hypothyroidism History of Present Illness Service Psychiatry Consult Requested By Primary Care Physician Non-Staff HPI The patient is a 55-year-old woman, single, domiciled with roommate in the [place], unemployed, with psychiatric history of anxiety, she is in clonazepam 1 mg 3 times a day, prescribed by PCP, no previous psychiatric hospitalizations, no previous suicidal attempts, medical history hypertension, hypothyroidism, and asthma, who was brought to the emergency room by EMS after being called by her roommate since she was acting bizarre. The roommate has known her for past 3 months. Says that today she was found sitting in the kitchen at the dining table in her underwear and brought and talking to the microwave. She was not making sense. She had also shelved few towels into the toilet that caused the toilet to be blocked. As per him this is completely not usual of her. When patient arrived she had slurred speech and was not answering questions appropriately. She was disoriented. She was consulted to psychiatry to rule out primary psychosis and to control behavior. Patient was agitated at some point, knitting Haldol 2 mg to help her to calm down. On psychiatric evaluation today patient is found restrained in 4 points, sedated, superficially cooperative, but alert. Patient at the beginning was reluctant to cooperate, but with redirection patient was able to answer most of our questions. Patient does not know the reason she is in the hospital. However, she is fully oriented 3 at this moment. Without any attention deficit, no fluctuation of consciousness, no signs of delirium. She denies depressive symptoms, she denies anxiety at this moment, she denies perceptual disturbances , she denies suicidal and homicidal ideation. She says that she believes that she is here because she was having leg pain. At the beginning patient denied psychiatric history, but then states that she has history of anxiety, and she has been on clonazepam 1 mg 2 times per day. She does admit that she overtakes the clonazepam sometimes. She denies illegal drug use, however toxicology is positive for cannabis and benzos. Review of Systems Constitutional: DENIES: Diaphoretic episodes, Fatigue, Fever, Weight gain, Weight loss, Chills, Dizziness, Change in appetite, Night Sweats Endocrine: DENIES: Abnorml menstrual pattern, Heat/cold intolerance, Polydipsia , Polyuria, Polyphagia Eyes: DENIES: Blurred vision, Diplopia, Eye inflammation, Eye pain, Vision loss , Photosensitivity, Double Vision Ears, nose, mouth, throat: DENIES: Tinnitus, Hearing loss, Vertigo, Nasal discharge, Oral lesions, Throat pain, Hoarseness, Ear Pain, Running Nose, Epistaxis, Sinus Pain, Toothache, Odynophagia Cardiovascular: DENIES: Chest pain, Palpitations, Syncope, Dyspnea on Exertion , PND, Lower Extremity Edema, Orthopnea, Claudication Gastrointestinal: DENIES: Abdominal pain, Black stools, Bloody stools, Constipation, Diarrhea, Nausea, Vomiting, Difficulty Swallowing, Anorexia Genitourinary: DENIES: Abnormal vaginal bleeding, Dysmenorrhea, Dyspareunia, Sexual dysfunction, Urinary frequency, Urinary incontinence, Urgency, Hematuria , Dysuria, Nocturia, Vaginal discharge Hematologic/lymphatic: DENIES: Bruising, Lymphadenopathy Immunologic/allergic: DENIES: Eczema, Urticaria Psychiatric: COMPLAINS OF: Confusion Past Family Social History Coded Allergies: No Known Allergies (Unverified , 06/02/16) Active Scripts Cyclobenzaprine (Flexeril)5 Mg Tab5 Mg PO TID #10 TAB Ref 0 Prov:Veronica Mays DO 06/02/16 Reported Medications Levothyroxine (Synthroid)125 Mcg [id number] Mcg PO DAILY #30 TAB Ref 0 03/25/16 Amlodipine 5 Mg Tab5 Mg PO DAILY #30 TAB Ref 0 03/25/16 Discontinued Scripts Methylprednisolone Dosepak (Medrol Dosepak)4 Mg Dspk4 Mg PO DIRECTED #1 DSPK Ref 0 Per Pharmacist direction Prov:Veronica Mays DO 06/02/16 Oxycodone-Acetaminophen (Percocet)5-325 mg Tab1 Tab PO Q6H PRN (PAIN) #10 TAB Ref 0 Prov:Veronica Mays DO 06/02/16 Current Medications Medications (Trade) Dose Ordered Sig/Nathan Route Start Time Stop Time Status Last Admin Levothyroxine Sodium 125 mcg 125 mcg DAILY@06 PO 06/25/16 06:00 06/25/16 05:51 (NS 1000 ml Inj) 1,000 ml @ 100 mls/hr Q10H IV 06/24/16 10:52 06/24/16 20:52 (NS Flush) 2 ml UNSCH PRN IV FLUSH 06/24/16 11:00 (NS Flush) 2 ml BID IV FLUSH 06/24/16 21:00 06/25/16 08:21 (Tylenol) 650 mg Q4H PRN PO 06/24/16 11:00 (Zofran Inj) 4 mg Q6H PRN IVP 06/24/16 11:00 (Dulcolax Supp) 10 mg DAILY PRN RECTAL 06/24/16 11:00 (Colace) 100 mg Q12HR PO 06/24/16 11:00 06/24/16 23:17 (Lovenox Inj) 40 mg Q24H SQ 06/24/16 12:00 06/25/16 12:49 (Narcan Inj) 0.4 mg UNSCH PRN IV 06/24/16 11:00 (Haldol Inj) 2 mg Q8H PRN IV 06/24/16 14:30 06/24/16 23:17 (Vasotec Inj) 1.25 mg Q6H PRN IV PUSH 06/25/16 01:00 06/25/16 01:15 (Norvasc) 10 mg DAILY PO 06/26/16 09:00 Family History She denies family psychiatric history Social History Patient was born and raised in [place], she has been living in [facility] with a roommate, she is single, she has 2 kids, he has a part-time job, her highest level of education is 10th grade Patient's Strengths (min. 2) Verbal communication Physical Exam On physical exam patient seems to be sedated, hypoactive, but no EPS, no withdrawal, no tremors present Vital Signs Vital Signs Date Time Temp Pulse Resp B/P Pulse Ox O2 Delivery O2 Flow Rate FiO2 06/25/16 11:56 97.1 79 19 170/98 99 06/25/16 01:04 21 06/24/16 08:37 Room Air I/O 06/24/16 06/24/16 06/24/16 07:59 15:59 23:59 Output Total 650 ml Balance -650 ml Lab Results Toxicology is positive for benzos and cannabis, WBC is 10.2, Hgb is 11.4, HCT is 34.9, NA is 42, K is 3.2, BUN is 19, creatinine 0.4, AST 50 night, ALT 46, T3 is 1.0, T4 8 0.8, urine is negative. Mental Status Examination Appearance overweight woman, for hygiene, [facility], age appearing, superficially cooperative, sedated Speech: Hesitant, Slow Orientation: x3 Memory: Unremarkable Thought Process: Logical Thought Content: Unremarkable Hallucination Type: None Suicidal Ideation: No Previous Suicide Attempts: No Homicidal Ideation: No Previous Homicide Attempts: No Insight: Fair Judgment: WNL Affect if Inappropriate: Other (restricted) Mood: Euthymic Motor Activity: Normal gait Assessment & Plan Problem List: (1) Delirium due to another medical condition Assessment & Plan: On psychiatric evaluation today the patient seems to be quite sedated, restrained in 4 points, however cooperative, no agitation, no aggressive behavior present. Patient is minimally cooperative, but able to provide meaningful information for the psychiatric assessment. She seems to be confused, she doesn't remember the reason of the hospitalizations, she is oriented 3, without attention deficit or fluctuation of consciousness present. She denies depressive symptoms, she denies anxiety, she denies perceptual disturbances, she denies toni, she denies suicidal or homicidal ideation, she denies visual and auditory hallucinations. Recent episode of confusion, disorganized and bizarre behavior at home, disorientation seems to be related with delirium most probably secondary to underlying medical conditions, but also benzodiazepines withdrawal has to be consider. Patient does not meet criteria for psychiatric admission at this moment. Extensive psychoeducation, supportive motivation provided. Will order CIWA protocol. Also will restart clonazepam 1 mg twice a day. Consult appreciated. ICD Code: F05 Assessment & Plan Estimated LOS: days Erik Thomas MD June 25, 2016 13:28
[2016-06-25] MEDS ORDERED: THIAMINE INJ 100 MG in SODIUM CHLORIDE 0.9% INJ 100 ML IV SCH (17:00)
[2016-06-25] MEDS ORDERED: MULTIVITAMIN INJ 10 ML, FOLIC ACID INJ 1 MG in SODIUM CHLORID 0.9% 500 ML INJ 500 ML IV SCH (17:00)
[2016-06-26 00:08] VITALS: BP 136/63; PULSE 78; RESP 18; TEMP 97.3; O2SAT 93
[2016-06-26 04:00] VITALS: BP 132/63; PULSE 72; RESP 18; TEMP 97.2; O2SAT 94
[2016-06-26] MEDS: LEVOTHYROXINE SODIUM 125 MCG TAB PO SCH (05:33)
[2016-06-26] MEDS ORDERED: POTASSIUM CHLORIDE 20 MEQ CONTROLLED RELEASE TAB PO ONE ×2 (08:00→10:00)
[2016-06-26 08:09] VITALS: PULSE 61
[2016-06-26] MEDS: SODIUM CHLOR 0.9% 1000 ML INJ 1,000 ML IV SCH ×2 (08:21→13:17)
[2016-06-26] MEDS: DOCUSATE SODIUM 100 MG CAP PO SCH (08:21)
[2016-06-26] MEDS: SODIUM CHLORIDE 0.9% FLUSH 10 ML FLUSH IV FLUSH SCH (08:21)
[2016-06-26 08:48] VITALS: BP 153/77; PULSE 77; RESP 20; TEMP 97.9; O2SAT 95
[2016-06-26] MEDS ORDERED: amLODIPine BESYLATE 5 MG TAB PO SCH (09:00)
--- NOTE | 2016-06-26 10:52 | HHI.PR ---
Subjective Remarks 55-year-old female brought to the emergency room by EMS after being called by her roommate since she was acting bizarre. The roommate has known her for past 3 months. Says that today she was found sitting in the kitchen at the dining table in her underwear and brought and talking to the microwave. She was not making sense. She had also shelved few towels into the toilet that caused the toilet to be blocked. As per him this is completely not usual of her. When patient arrived she had slurred speech and was not answering questions appropriately. She was disoriented. Vital signs were otherwise stable. When I went to examine her patient was initially sleeping and sliding down the stretcher. When I woke her up she woke up and answered questions appropriately. At that point she was oriented. She was following commands fine. Vital signs are within normal limits. 06/25: Seen in her bedroom in the presence of nurse and Sitter, stable alert and oriented x3, discussed with psychiatry specialist, he thinks more related to Benzodiazepine withdrawal, she is stable giving her Benzo at this time and may be able to remove restraints in the next 24 hours, developed hypertension but the patient is been agitated on restraints. continue present management, No nausea, vomit or diarrhea. 06/26:Patient stable discussed at this time with Psychiatry specialist he states is related to the high consumption of Xanax at home, also her Boyfriend Mr. Ney Nelson say she was abusing Xanax continuously until she was obtunded, also was positive for Marijuana, at this time walking in the aisle with Physical Therapy, she has Benzodiazepines at home no need for further medicines. no nausea, vomit or diarrhea, independent walking. Objective Vital Signs Date Time Temp Pulse Resp B/P Pulse Ox O2 Delivery O2 Flow Rate FiO2 06/26/16 08:48 97.9 77 20 153/77 95 06/26/16 08:09 61 06/26/16 04:00 97.2 72 18 132/63 94 06/26/16 00:08 97.3 78 18 136/63 93 06/25/16 20:00 97.9 82 18 137/71 96 06/25/16 16:14 98.9 70 18 153/90 99 06/25/16 11:56 97.1 79 19 170/98 99 I/O 06/25/16 06/25/16 06/25/16 06/26/16 06/26/16 06/26/16 07:00 15:00 23:00 07:00 15:00 23:00 Intake Total 670 ml 550 ml Output Total 400 ml 700 ml 200 ml 550 ml Balance -400 ml -30 ml 350 ml -550 ml Intake Oral 670 ml 550 ml Output Urine Total 400 ml 700 ml 200 ml 550 ml # Bowel Movements 1 1 Result Diagram: 06/25/16 0630 06/25/16 06 Imaging Last Impressions Head CT 06/24/16740 Signed Impressions: Service Date/Time: Friday, June 24, 2016 07:57 - CONCLUSION: Normal examination. Abdoulaye Fontaine MD Chest X-Ray 06/24/16740 Signed Impressions: Service Date/Time: Friday, June 24, 2016 07:54 - CONCLUSION: No acute disease. Abdoulaye Fontaine MD Procedures No procedures performed Other Results Laboratory Tests Test 06/24/16 06/24/16 06/24/16 06/24/16 07:45 08:05 08:30 16:10 Prothrombin Time 10.4 SEC Prothromb Time International 0.9 RATIO Ratio Lactic Acid Level 0.8 mmol/L Free Thyroxine 1.02 NG/DL Free Triiodothyronine (T3) 1.89 PG/ML pg/dL Thyroid Stimulating Hormone 16.000 uIU/ML 3rd Gen Salicylates Level 3.5 MG/DL Acetaminophen Level LESS THAN 2.0 MCG/ML Ethyl Alcohol Level LESS THAN 3 MG/DL Blood Gas Puncture Site RT RADIAL Blood Gas Patient Temperature 98.6 Blood Gas HCO3 26 mmol/L Blood Gas Base Excess 1.8 mmol/L Blood Gas Oxygen Saturation 93 % Arterial Blood pH 7.42 Arterial Blood Partial 40 mmHg Pressure CO2 Arterial Blood Partial 75 mmHG Pressure O2 Arterial Blood Oxygen Content 16.1 Vol % Arterial Blood 1.5 % Carboxyhemoglobin Arterial Blood Methemoglobin 0.8 % Blood Gas Hemoglobin 12.4 G/DL Oxygen Delivery Device ROOM AIR Blood Gas Inspired Oxygen 21 % Urine Color YELLOW Urine Turbidity CLEAR Urine pH 6.0 Urine Specific [place] 1.020 Urine Protein NEG mg/dL Urine Glucose (UA) NEG mg/dL Urine Ketones NEG mg/dL Urine Occult Blood TRACE Urine Nitrite NEG Urine Bilirubin NEG Urine Urobilinogen LESS THAN 2.0 MG/DL Urine Leukocyte Esterase NEG Urine RBC 8 /hpf Urine WBC 2 /hpf Urine Squamous Epithelial 1 /hpf Cells Urine Mucus FEW /lpf Microscopic Urinalysis Comment CATH-CULT NOT IND Urine Opiates Screen NEG Urine Barbiturates Screen NEG Urine Amphetamines Screen NEG Urine Benzodiazepines Screen POS Urine Cocaine Screen NEG Urine Cannabinoids Screen POS Total Creatine Kinase 566 U/L Creatine Kinase MB 8.5 NG/ML Creatine Kinase MB % 1.5 % Troponin I LESS THAN 0.02 NG/ML Test 06/25/16 06:30 White Blood Count 10.2 TH/MM3 Red Blood Count 4.09 MIL/MM3 Hemoglobin 11.4 GM/DL Hematocrit 34.9 % Mean Corpuscular Volume 85.4 FL Mean Corpuscular Hemoglobin 27.9 PG Mean Corpuscular Hemoglobin 32.7 % Concent Red Cell Distribution Width 15.0 % Platelet Count 261 TH/MM3 Mean Platelet Volume 7.1 FL Neutrophils (%) (Auto) 77.6 % Lymphocytes (%) (Auto) 13.0 % Monocytes (%) (Auto) 8.5 % Eosinophils (%) (Auto) 0.5 % Basophils (%) (Auto) 0.4 % Neutrophils # (Auto) 7.9 TH/MM3 Lymphocytes # (Auto) 1.3 TH/MM3 Monocytes # (Auto) 0.9 TH/MM3 Eosinophils # (Auto) 0.0 TH/MM3 Basophils # (Auto) 0.0 TH/MM3 CBC Comment DIFF FINAL Differential Comment Sodium Level 142 MEQ/L Potassium Level 3.2 MEQ/L Chloride Level 108 MEQ/L Carbon Dioxide Level 28.2 MEQ/L Anion Gap 6 MEQ/L Blood Urea Nitrogen 19 MG/DL Creatinine 0.49 MG/DL Estimat Glomerular Filtration 131 ML/MIN Rate Random Glucose 107 MG/DL Calcium Level 8.7 MG/DL Total Bilirubin 0.7 MG/DL Aspartate Amino Transf 59 U/L (AST/SGOT) Alanine Aminotransferase 46 U/L (ALT/SGPT) Alkaline Phosphatase 51 U/L Total Protein 6.4 GM/DL Albumin 3.5 GM/DL Objective Remarks GENERAL: Obesity alert and oriented x 3. SKIN: warm/dry. HEAD: Atraumatic. Normocephalic. EYES: Pupils equal and round. No scleral icterus. No injection or drainage. ENT: No nasal bleeding or discharge. Dry lips and mucous membranes NECK: Trachea midline. No JVD. CARDIOVASCULAR: Regular rate and rhythm. No murmur appreciated. RESPIRATORY: Clear to auscultation bilateral no wheezing or crackles. GASTROINTESTINAL: Abdomen soft, non-tender, nondistended. Hepatic and splenic margins not palpable. MUSCULOSKELETAL: No obvious deformities. No clubbing. No cyanosis. No edema. NEUROLOGICAL: Alert and oriented. No focal deficits. PSYCHIATRIC: Mood okay Medications and IVs Current Medications Medications (Trade) Dose Ordered Sig/Nathan Route Start Time Stop Time Status Last Admin Levothyroxine Sodium 125 mcg 125 mcg DAILY@06 PO 06/25/16 06:00 06/26/16 05:33 (NS 1000 ml Inj) 1,000 ml @ 100 mls/hr Q10H IV 06/24/16 10:52 06/24/16 20:52 (NS Flush) 2 ml UNSCH PRN IV FLUSH 06/24/16 11:00 (NS Flush) 2 ml BID IV FLUSH 06/24/16 21:00 06/26/16 08:21 (Tylenol) 650 mg Q4H PRN PO 06/24/16 11:00 (Zofran Inj) 4 mg Q6H PRN IVP 06/24/16 11:00 (Dulcolax Supp) 10 mg DAILY PRN RECTAL 06/24/16 11:00 (Colace) 100 mg Q12HR PO 06/24/16 11:00 06/24/16 23:17 (Lovenox Inj) 40 mg Q24H SQ 06/24/16 12:00 06/25/16 12:49 (Narcan Inj) 0.4 mg UNSCH PRN IV 06/24/16 11:00 (Haldol Inj) 2 mg Q8H PRN IV 06/24/16 14:30 06/24/16 23:17 (Vasotec Inj) 1.25 mg Q6H PRN IV PUSH 06/25/16 01:00 06/25/16 01:15 (Norvasc) 10 mg DAILY PO 06/26/16 09:00 06/26/16 08:21 (Romazicon Inj) 0.2 mg Q1M PRN IV PUSH 06/25/16 13:15 (Ativan) 1 mg Q4H PRN PO 06/25/16 13:15 (Ativan Inj) 1 mg Q4H PRN IV PUSH 06/25/16 13:15 (Ativan) 2 mg Q2H PRN PO 06/25/16 13:15 (Ativan Inj) 2 mg Q2H PRN IV PUSH 06/25/16 13:15 (Ativan Inj) 2 mg Q1H PRN IV PUSH 06/25/16 13:15 Lorazepam 2 mg 2 mg Q15M PRN IV PUSH 06/25/16 13:15 Multivitamins 10 ml/Folic Acid 1 mg/Sodium Chloride 510.2 ml @ 125 mls/hr Q24H IV 06/25/16 17:00 06/30/16 16:59 06/25/16 19:30 (Thiamine Inj/NS Inj) 101 ml @ 100 mls/hr Q24H IV 06/25/16 17:00 06/28/16 16:59 06/25/16 16:57 A/P Assessment and Plan 1. Acute Toxic Metabolic Encephalopathy/Delirium/Psychosis given Haldol and consulted Psychiatry specialist and discussed with him, consider benzodiazepine withdrawal, as per her Boyfriend states she was abusing Xanax incontrollable before coming to ER, he states he will need to talk with her about this issue also discussed with Doctor Erik Thomas Psychiatry specialist recommended to discharge Home discussed with Physical Therapy she is independent no need for Physical therapy or DME at this time. 2. Questionable Myxedema coma by ER specialist she has Hypothyroidism given 300 mg of levothyroxine. will continue home dose 125 mcg daily but definitely the patient is non compliant with her medicines. 3. Hypertension controlled. 4. obesity strongly recommended diet and exercise. As Always a pleasure to talk about cases receive input and recommendations by Psychiatry Specialist Doctor Erik Thomas. Highly Appreciated. DVT prophylaxis SCDs Code Status Full code. Discharge Planning Discharge Home now. Micky Anderson MD June 26, 2016 10:52
[2016-06-26] MEDS ORDERED: AMLO5 PO (10:54)
--- NOTE | 2016-06-26 11:03 | HHI.DS ---
Discharge Summary Admission Date June 24, 2016 at 10:55 Discharge Date: June 26, 2016 Admitting Diagnosis altered mental status, myxedema coma (1) Benzodiazepine intoxication ICD Code: T42.4X1A Diagnosis: Principal (2) Hypothyroidism ICD Code: E03.9 Diagnosis: Principal (3) Hypertension ICD Code: I10 Diagnosis: Principal (4) Morbid obesity ICD Code: E66.01 Diagnosis: Principal (5) Encephalopathy acute ICD Code: G93.40 Diagnosis: Principal Procedures No procedures performed to the patient Brief History - From Admission 55-year-old female brought to the emergency room by EMS after being called by her roommate since she was acting bizarre. The roommate has known her for past 3 months. Says that today she was found sitting in the kitchen at the dining table in her underwear and brought and talking to the microwave. She was not making sense. She had also shelved few towels into the toilet that caused the toilet to be blocked. As per him this is completely not usual of her. When patient arrived she had slurred speech and was not answering questions appropriately. She was disoriented. Vital signs were otherwise stable. When I went to examine her patient was initially sleeping and sliding down the stretcher. When I woke her up she woke up and answered questions appropriately. At that point she was oriented. She was following commands fine. Vital signs are within normal limits. Seen in her bedroom in ER in the presence of ER nurse. CBC/BMP: 06/25/16 0630 06/25/16 0630 Significant Findings Laboratory Tests Test 06/24/16 06/24/16 06/24/16 06/24/16 07:45 08:30 10:45 16:10 White Blood Count 11.4 TH/MM3 (4.0-11.0) Neutrophils (%) (Auto) 84.0 % (16.0-70.0) Neutrophils # (Auto) 9.6 TH/MM3 (1.8-7.7) Blood Urea Nitrogen 25 MG/DL (7-18) Estimat Glomerular Filtration 72 ML/MIN (>89) Rate Random Glucose 120 MG/DL (74-106) Total Creatine Kinase 266 U/L 301 U/L 566 U/L (26-192) (26-192) (26-192) Creatine Kinase MB 4.8 NG/ML 5.5 NG/ML 8.5 NG/ML (0.5-3.6) (0.5-3.6) (0.5-3.6) Troponin I LESS THAN 0.02 LESS THAN 0.02 LESS THAN 0.02 NG/ML NG/ML NG/ML (0.02-0.05) (0.02-0.05) (0.02-0.05) Free Triiodothyronine (T3) 1.89 PG/ML pg/dL (2.18-3.98) Thyroid Stimulating Hormone 16.000 uIU/ML 3rd Gen (0.358-3.740) Acetaminophen Level LESS THAN 2.0 MCG/ML (10.0-30.0) Urine Occult Blood TRACE (NEG) Urine RBC 8 /hpf (0-3) Urine Mucus FEW /lpf (OCC) Urine Benzodiazepines Screen POS (NEG) Urine Cannabinoids Screen POS (NEG) Test 06/25/16 06:30 Hemoglobin 11.4 GM/DL (11.6-15.3) Hematocrit 34.9 % (35.0-46.0) Neutrophils (%) (Auto) 77.6 % (16.0-70.0) Monocytes (%) (Auto) 8.5 % (0.0-8.0) Neutrophils # (Auto) 7.9 TH/MM3 (1.8-7.7) Potassium Level 3.2 MEQ/L (3.5-5.1) Chloride Level 108 MEQ/L (98-107) Blood Urea Nitrogen 19 MG/DL (7-18) Creatinine 0.49 MG/DL (0.50-1.00) Random Glucose 107 MG/DL (74-106) Aspartate Amino Transf 59 U/L (15-37) (AST/SGOT) Imaging Last Impressions Head CT 06/24/16740 Signed Impressions: Service Date/Time: Friday, June 24, 2016 07:57 - CONCLUSION: Normal examination. Abdoulaye Fontaine MD Chest X-Ray 06/24/16740 Signed Impressions: Service Date/Time: Friday, June 24, 2016 07:54 - CONCLUSION: No acute disease. Abdoulaye Fontaine MD PE at Discharge GENERAL: Obesity alert and oriented x 3. SKIN: warm/dry. HEAD: Atraumatic. Normocephalic. EYES: Pupils equal and round. No scleral icterus. No injection or drainage. ENT: No nasal bleeding or discharge. Dry lips and mucous membranes NECK: Trachea midline. No JVD. CARDIOVASCULAR: Regular rate and rhythm. No murmur appreciated. RESPIRATORY: Clear to auscultation bilateral no wheezing or crackles. GASTROINTESTINAL: Abdomen soft, non-tender, nondistended. Hepatic and splenic margins not palpable. MUSCULOSKELETAL: No obvious deformities. No clubbing. No cyanosis. No edema. NEUROLOGICAL: Alert and oriented. No focal deficits. PSYCHIATRIC: [facility] Course 55-year-old female brought to the emergency room by EMS after being called by her roommate since she was acting bizarre. The roommate has known her for past 3 months. Says that today she was found sitting in the kitchen at the dining table in her underwear and brought and talking to the microwave. She was not making sense. She had also shelved few towels into the toilet that caused the toilet to be blocked. As per him this is completely not usual of her. When patient arrived she had slurred speech and was not answering questions appropriately. She was disoriented. Vital signs were otherwise stable. When I went to examine her patient was initially sleeping and sliding down the stretcher. When I woke her up she woke up and answered questions appropriately. At that point she was oriented. She was following commands fine. Vital signs are within normal limits. 06/25: Seen in her bedroom in the presence of nurse and Sitter, stable alert and oriented x3, discussed with psychiatry specialist, he thinks more related to Benzodiazepine withdrawal, she is stable giving her Benzo at this time and may be able to remove restraints in the next 24 hours, developed hypertension but the patient is been agitated on restraints. continue present management, No nausea, vomit or diarrhea. 06/26:Patient stable discussed at this time with Psychiatry specialist he states is related to the high consumption of Xanax at home, also her Boyfriend Mr. Ney Nelson say she was abusing Xanax continuously until she was obtunded, also was positive for Marijuana, at this time walking in the aisle with Physical Therapy, she has Benzodiazepines at home no need for further medicines. no nausea, vomit or diarrhea, independent walking. Assessment and Plan 1. Acute Toxic Metabolic Encephalopathy/Delirium/Psychosis given Haldol and consulted Psychiatry specialist and discussed with him, consider benzodiazepine withdrawal, as per her Boyfriend states she was abusing Xanax incontrollable before coming to ER, he states he will need to talk with her about this issue also discussed with Doctor Erik Thomas Psychiatry specialist recommended to discharge Home discussed with Physical Therapy she is independent no need for Physical therapy or DME at this time. 2. Benzodiazepine Intoxication as per her Boyfriend she was abusing of Xanax incontrollable at home before this episode happened. 3. Hypothyroidism with Non compliant issues, thought initially by ER specialist as Myxedema Coma given 300 mg of levothyroxine. will continue home dose 125 mcg daily but definitely the patient is non compliant with her medicines. 4. Hypertension initially uncontrolled increased amlodipine to 10 mg daily 5. Morbid obesity strongly recommended diet and exercise. Discussed with her Boyfriend Mr. Ney Nelson to the phone number [phone] tried to contact her Sister Mrs Saray Ziegler to the phone number [phone] no answer left a message. As Always a pleasure to talk about cases receive input and recommendations by Psychiatry Specialist Doctor Erik Thomas. Highly Appreciated. DVT prophylaxis SCDs Code Status Full code. Discharge Planning Discharge Home now. Pt Condition on Discharge: Good Discharge Disposition: Discharge Home Discharge Time: <= 30 minutes Discharge Instructions DIET: Follow Instructions for: Heart Healthy Diet Activities you can perform: Regular-No Restrictions Micky Anderson MD June 26, 2016 11:03
[2016-06-26] MEDS: ENOXAPARIN SODIUM 40 MG/0.4 ML SYRINGE SQ SCH (11:24)
[2016-06-26 11:58] VITALS: BP 134/77; PULSE 90; RESP 20; TEMP 98.5; O2SAT 96
== END 2016-06-26 14:47 | disposition home or self-care (01) ==
LOC: NEPE 07:01 → INTOOBSV 10:55 → NEDA 10:55 → N05A 13:30
PROVIDERS: ADMIT Internal Medicine; ATTEND Internal Medicine
DX: G92 Toxic encephalopathy (principal); T42.4X1A Poisoning by benzodiazepines, accidental (unintentional), initial encounter; E03.5 Myxedema coma; E03.9 Hypothyroidism, unspecified; R47.81 Slurred speech; F41.9 Anxiety disorder, unspecified; E66.01 Morbid (severe) obesity due to excess calories; F32.9 Major depressive disorder, single episode, unspecified; I10 Essential (primary) hypertension; Z78.1 Physical restraint status; Z91.19 Patient's noncompliance with other medical treatment and regimen; F05 Delirium due to known physiological condition; F13.239 Sedative, hypnotic or anxiolytic dependence with withdrawal, unspecified; J45.909 Unspecified asthma, uncomplicated; M06.9 Rheumatoid arthritis, unspecified; F17.200 Nicotine dependence, unspecified, uncomplicated
CPT/HCPCS: 36600; 70450; 71010; 76937; 80053; 80307; 81001; 82550; 82552; 82805; 83605; 84439; 84443; 84481; 84484; 85025; 85610; 87040; 93005; 94640; 94664; 96361; 96372; 96374; 96375; 97163; 99291; G0378; J1630; J1650; J2930; J3411; J7030; J7040